=== PATIENT | female | born 1980 | race Caucasian/White ===

== ENCOUNTER 2016-04-18 07:29 | Day surgery (SDC) | payer OTHER ==
[~2016-04-18] VITALS: Ht 160 cm; Wt 110.0 kg
== END 2016-04-18 11:30 | disposition home or self-care (01) ==
LOC: RAD.S 07:29 → EDSTATUS 09:00 → RAD.S 09:00
PROC: 3E0S33Z Introduction of Anti-inflammatory into Epidural Space, Percutaneous Approach (ICD-10-PCS; principal; 2016-04-18)
DX: M47.26 Other spondylosis with radiculopathy, lumbar region (principal); Z79.899 Other long term (current) drug therapy